=== PATIENT | female | born 1985 | race American Indian/Alaskan Native ===

== ENCOUNTER 2016-08-08 18:25 | Emergency (ER) | payer SELFPAY ==
[2016-08-08 19:29] LABS: Bilirubin,Urine NEG (Negative); Blood,Urine NEG (Negative); Ketones,Urine TR mg/dL (Negative); Leukocyte Esterase,Urine TR (Negative); Mucus,Urine 3+ /HPF; Nitrite,Urine NEG (Negative)
[2016-08-08 20:37] LABS: Eosinophils % (Auto) 2.3 % (0.0-4.3); Hematocrit 32.2 % (30.3-42.9); Hemoglobin 10.3 gm/dl (10.1-14.3); Mean Corpuscular HGB Conc 32 % (30-34); Mean Corpuscular Volume 78 fl (79-97); Platelet Count 184 K/mm3 (140-440); Red Blood Count 4.13 M/mm3 (3.65-5.03); Red Cell Distribution Width 15.7 % (13.2-15.2); White Blood Count 5.6 K/mm3 (4.5-11.0)
[2016-08-08 20:39] LABS: Mean Corpuscular Hemoglobin 25 pg (28-32)
[2016-08-08 20:58] LABS: Anion Gap 16 mmol/L; BUN/Creatinine Ratio 11.25; Blood Urea Nitrogen 9 mg/dL (7-17); Calcium 9.1 mg/dL (8.4-10.2); Carbon Dioxide 26 mmol/L (22-30); Chloride 106.2 mmol/L (98-107); Glucose 93 mg/dL (65-100); Potassium 3.7 mmol/L (3.6-5.0); Sodium 144 mmol/L (137-145)
--- NOTE | 2016-08-08 21:08 | Emergency Department Report ---
ED Female HPI - General Chief complaint: Urogenital-Female Stated complaint: ABD PAIN /RONDA/BACK PAIN Time Seen by Provider: 08/08/16 20:02 Source: patient Mode of arrival: Ambulatory Limitations: No Limitations - History of Present Illness Initial comments: This is a 30-year-old female well-nourished with nontoxic or ill in appearance that presents with abdominal pain to the left side for over 6 months. Patient stated it is intermittent pain that is aching with a quality of a 6 out of a 10. Patient stated she is coming into the emergency room due to pain worsening today. Patient denies any nausea or vomiting. Patient denies any chest pain, shortness of breath, urinary frequency, difficulty urinating, headache, numbness or tingling sensation. Patient stated has been having a foul odor to urine for a couple years now. Patient agrees to drinking a lot of coffee with no more than 1 or 2 bottles of water a day. Patient denies new sexual partner or worries of an STD. Patient denies any vaginal discharge or bleeding. Patient denies any drug allergies. MD Complaint: other (abdominal pain with urinary foul order) -: Gradual, year(s) Location: other (diffuse) Radiation: non-radiating Severity: mild Severity scale (0 -10): 6 Quality: cramping, aching Consistency: constant Improves with: none Worsens with: none Are you Now?: No (as per patient) Associated Symptoms: abdominal pain (diffuse), other (urinary fell order). denies: vaginal discharge, vaginal bleeding, nausea/vomiting, fever/chills, headaches, loss of appetite, dysuria, hematuria, rash, seizure, shortness of breath, syncope, weakness - Related Data Sexually active: No (as per patient) Allergies Allergy/AdvReac Type Severity Reaction Status Date / Time No Known Allergies Allergy Verified 01/09/16 20:19 ED Review of Systems ROS: Stated complaint: ABD PAIN /RONDA/BACK PAIN Other details as noted in HPI Constitutional: denies: chills, fever Eyes: denies: eye pain, eye discharge, vision change ENT: denies: ear pain, throat pain Respiratory: denies: cough, shortness of breath, wheezing Cardiovascular: denies: chest pain, palpitations Endocrine: no symptoms reported Gastrointestinal: abdominal pain (diffuse). denies: nausea, vomiting, diarrhea , constipation, hematemesis, melena, hematochezia Genitourinary: other (foul odor). denies: urgency, dysuria, frequency, hematuria, discharge, abnormal menses, dyspareunia Musculoskeletal: denies: back pain, joint swelling, arthralgia Skin: denies: rash, lesions Neurological: denies: headache, weakness, paresthesias Psychiatric: denies: anxiety, depression Hematological/Lymphatic: denies: easy bleeding, easy bruising ED Past Medical Hx - Past Medical History Previous Medical History?: Yes Additional medical history: anemia, - Surgical History Past Surgical History?: Yes Additional Surgical History: x2 - Social History Smoking Status: Current Some Day Smoker Substance Use Type: Alcohol ED Physical Exam - General Limitations: No Limitations General appearance: alert, in no apparent distress - Head Head exam: Present: atraumatic, normocephalic - Eye Eye exam: Present: normal appearance, PERRL, EOMI Pupils: Present: normal accommodation - ENT ENT exam: Present: normal exam, normal orophraynx, mucous membranes moist, TM's normal bilaterally, normal external ear exam - Neck Neck exam: Present: normal inspection, full ROM. Absent: tenderness, meningismus, lymphadenopathy, thyromegaly - Respiratory Respiratory exam: Present: normal lung sounds bilaterally. Absent: respiratory distress, wheezes, rales, rhonchi, stridor - Cardiovascular Cardiovascular Exam: Present: regular rate, normal rhythm, normal heart sounds. Absent: systolic murmur, diastolic murmur, rubs, gallop - GI/Abdominal GI/Abdominal exam: Present: soft, tenderness (diffuse), normal bowel sounds, other. Absent: distended, guarding, rebound, rigid, diminished bowel sounds, hyperactive bowel sounds, hypoactive bowel sounds, organomegaly, mass, bruit, pulsatile mass, hernia - Expanded GI/Abdominal Exam Expanded GI/Abdominal exam: Absent: psoas sign, obturator sign, Blankenship's sign, Rovsing's sign, tenderness at Mcburney's Point - Extremities Exam Extremities exam: Present: normal inspection, full ROM, normal capillary refill. Absent: tenderness, pedal edema, joint swelling, calf tenderness - Back Exam Back exam: Present: normal inspection, full ROM. Absent: tenderness, CVA tenderness (R), CVA tenderness (L), muscle spasm, paraspinal tenderness, vertebral tenderness, rash noted - Neurological Exam Neurological exam: Present: alert, oriented X3, CN II-XII intact, normal gait - Psychiatric Psychiatric exam: Present: normal affect, normal mood - Skin Skin exam: Present: warm, dry, intact, normal color. Absent: rash ED Course Vital Signs 08/08/16 18:44 Temperature 98.4 F Pulse Rate 78 Respiratory 16 Rate Blood Pressure 122/89 O2 Sat by Pulse 100 Oximetry ED Medical Decision Making - Lab Data Result diagrams: 08/08/16 20:25 08/08/16 20:25 - Medical Decision Making ED course: This is a 30-year-old female that presents with chronic abdominal pain. 1- abdomen physical exam, a CT abdomen/pelvic has been obtained in the ED. Result has been dictated by Dr. Romo. Impression; no evidence of acute disease in the abdomen or pelvis. Patient received 1 L of normal saline in the ED. Toradol 30 MG IV was given for pain. 2- UA has been obtained and ED with a slight elevation in WBCs of 7 and epithelium cells of 16.0 with a trace of ketones. Dr. Pedersen has been consulted about the patient and lab values, agrees to the plan of care and discharge. Due to patient being asymptomatic of urinary tract infection, they usually lab value is results of a dirty catch. 3- CBC and BMP has been obtained in the ED. 4- I instructed the patient to increase fluids at about 6-8 8 ounce glasses a day. I notified the patient may be dehydrated and symptoms of urinary foul order can be caused to this. 5- patient was instructed to follow-up with the primary care doctor in 3-5 days. 6- at the time of discharge the patient does not seem toxic or ill in appearance. No signs of acute distress noted. Patient agrees with discharge plan of care. No further questions noted by the patient. Critical care attestation.: If time is entered above; I have spent that time in minutes in the direct care of this critically ill patient, excluding procedure time. ED Disposition Clinical Impression: Chronic abdominal pain Disposition: DISCHARGED TO HOME OR SELFCARE Is pt being admited?: No Does the pt Need Aspirin: No Condition: Stable Instructions: Abdominal Pain (ED) Additional Instructions: Follow-up with your primary care doctor in 3-5 days. If symptoms worsen report back to emergency room. Increase 6-8 8 ounce of fluids a day. This may subside his symptoms of urinary foul odor Referrals: PRIMARY CARE, [Primary Care Provider] - 3-5 Days [facility] [Outside] - 3-5 Days [facility] [Outside] - 3-5 Days LIZ ESCOBAR MD [Staff Physician] - 3-5 Days Forms: Work/School Release Form(ED)
[2016-08-08] MEDS ORDERED: NACL 0.9% 1000 ML 1,000 ML IV ONE (22:13)
[2016-08-08] MEDS ORDERED: TORADOL IV ONE (22:24)
--- NOTE | 2016-08-08 22:26 | Cat Scan Report ---
FINAL REPORT PROCEDURE: CT abdomen and pelvis with contrast. TECHNIQUE: Computerized axial tomography of the abdomen and pelvis was performed after the IV injection of iodinated nonionic contrast. HISTORY: Abdominal pain. COMPARISON: No prior studies are available for comparison. FINDINGS: The lung bases are clear. There are no pleural effusions. The heart size is normal. The liver, spleen and pancreas appear normal. The gallbladder is contracted. The adrenal glands are not enlarged. Both kidneys appear normal in size and configuration. The abdominal aorta has a normal caliber. There is no retroperitoneal adenopathy. A normal appendix is visible. The bladder, uterus and adnexal regions appear normal. The regional skeleton appears intact. There are bilateral gluteal prostheses present. IMPRESSION: No evidence of acute disease in the abdomen or pelvis.
[2016-08-08 22:54] VITALS: BP 130/88
== END 2016-08-08 22:55 | disposition home or self-care (01) ==
LOC: ED 18:25
DX: G89.29 Other chronic pain (principal); R10.9 Unspecified abdominal pain
CPT/HCPCS: 36415; 74177; 80048; 81001; 81025; 85025; 96361; 96374; 99284; J1885; J7030; Q9967

== ENCOUNTER 2016-10-17 17:28 | Emergency (ER) | payer SELFPAY ==
[2016-10-17 17:50] VITALS: BP 104/62
[2016-10-17 18:10] LABS: Basophils % (Auto) 0.9 % (0.0-1.8); Eosinophils % (Auto) 1.1 % (0.0-4.3); Hemoglobin 12.5 gm/dl (10.1-14.3); Mean Corpuscular HGB Conc 33 % (30-34); Mean Corpuscular Volume 75 fl (79-97); Platelet Count 195 K/mm3 (140-440); Red Blood Count 5.05 M/mm3 (3.65-5.03); Red Cell Distribution Width 16.3 % (13.2-15.2); White Blood Count 8.4 K/mm3 (4.5-11.0)
[2016-10-17 18:11] LABS: Mean Corpuscular Hemoglobin 25 pg (28-32)
[2016-10-17 18:29] LABS: Anion Gap 20 mmol/L; BUN/Creatinine Ratio 15.45; Blood Urea Nitrogen 17 mg/dL (7-17); Calcium 9.6 mg/dL (8.4-10.2); Carbon Dioxide 23 mmol/L (22-30); Chloride 98.1 mmol/L (98-107); Glucose 114 mg/dL (65-100); Potassium 3.1 mmol/L (3.6-5.0); Sodium 138 mmol/L (137-145)
--- NOTE | 2016-10-17 19:16 | Emergency Department Report ---
ED Syncope HPI - General Chief Complaint: Syncope Stated Complaint: WEAKNESS/VAG BLEEDING Time Seen by Provider: 10/17/16 19:00 Source: patient, family Exam Limitations: no limitations - History of Present Illness Initial Comments: Patient is that she is throat and now some anxious having a fainting episode that continue for probably . Patient stated that all symptoms resolved now denied any headache nausea or vomiting. No weakness numbness or tingling sensation Timing/Prior Episodes: single episode today Precipitating Factors: Positive: none Context: standing Current Symptoms: back to normal - Related Data Allergies/Adverse Reactions: Allergies No Known Allergies Allergy (Verified 01/09/16 20:19) ED Review of Systems ROS: Stated complaint: WEAKNESS/VAG BLEEDING Other details as noted in HPI Comment: All other systems reviewed and negative Constitutional: denies: chills, fever Eyes: denies: eye pain Respiratory: denies: see HPI, cough, shortness of breath Cardiovascular: syncope. denies: chest pain, palpitations, paroxysmal nocturnal dyspnea Gastrointestinal: denies: abdominal pain, nausea, vomiting Genitourinary: abnormal menses. denies: urgency, dysuria Neurological: denies: headache, weakness, numbness, paresthesias, confusion, abnormal gait, vertigo ED Past Medical Hx - Past Medical History Previous Medical History?: Yes Additional medical history: anemia. methotrexate after molar - Surgical History Past Surgical History?: Yes Additional Surgical History: x3. d&c - Social History Smoking Status: Current Every Day Smoker Substance Use Type: Alcohol ED Physical Exam - General Limitations: No Limitations General appearance: alert, in no apparent distress - Head Head exam: Present: atraumatic - Eye Eye exam: Present: normal appearance - ENT ENT exam: Present: normal exam - Neck Neck exam: Present: normal inspection. Absent: tenderness, meningismus - Respiratory Respiratory exam: Present: normal lung sounds bilaterally. Absent: respiratory distress, wheezes, rales, rhonchi, stridor, decreased breath sounds - Cardiovascular Cardiovascular Exam: Present: regular rate, normal rhythm, normal heart sounds - GI/Abdominal GI/Abdominal exam: Present: soft. Absent: distended, tenderness, guarding, rebound, rigid, mass, bruit, pulsatile mass, hernia - Neurological Exam Neurological exam: Present: alert, oriented X3, CN II-XII intact - Skin Skin exam: Present: warm, normal color ED Course Vital Signs 10/17/16 10/17/16 10/17/16 17:35 17:41 17:45 Temperature 97.4 F L Pulse Rate 67 58 L Respiratory 9 L 18 Rate Blood Pressure 104/62 104/62 O2 Sat by Pulse 89 100 100 Oximetry 10/17/16 10/17/16 17:51 18:01 Temperature Pulse Rate 62 78 Respiratory 14 11 L Rate Blood Pressure 104/62 104/62 O2 Sat by Pulse 93 100 Oximetry - Reevaluation(s) Reevaluation #1: 10/17/16 19:16 Patient remained asymptomatic in the ER and advised to drink more fluids and follow up with her primary care physician as needed ED Medical Decision Making - Lab Data Result diagrams: 10/17/16 18:00 10/17/16 18:00 Critical care attestation.: If time is entered above; I have spent that time in minutes in the direct care of this critically ill patient, excluding procedure time. ED Disposition Clinical Impression: Syncope Disposition: DC-01 TO HOME OR SELFCARE Is pt being admited?: No Does the pt Need Aspirin: No Condition: Stable Instructions: Syncope (ED) Referrals: PRIMARY CARE, [Primary Care Provider] - 3-5 Days Forms: Work/School Release Form(ED)
== END 2016-10-17 19:44 | disposition home or self-care (01) ==
LOC: ED 17:28
DX: R55 Syncope and collapse (principal)
CPT/HCPCS: 36415; 80048; 82962; 84484; 84703; 85025; 93005; 93010